=== PATIENT | female | born 1955 | race Caucasian/White ===

== ENCOUNTER → 2017-05-03 18:07 | Outpatient (CLI) | payer OTHER, SELFPAY ==
--- NOTE | 2017-05-03 18:38 | RAD_ITS ---
STUDY: X-RAY - RIGHT WRIST REASON FOR EXAM: Female, 61 years old. Right wrist pain x1 week TECHNIQUE: 3 view(s) of the wrist were obtained. COMPARISON: None. FINDINGS: Normal visualized distal radius and ulna. Normal radiocarpal articulation. Normal distal radioulnar articulation. Cystic area in the subchondral region of the lunate. Normal carpal articulations. Normal carpometacarpal articulation of the thumb. Normal second through fifth carpometacarpal articulations. Normal visualized metacarpal bones. The soft tissue structures are unremarkable. Probable old fracture of the ulnar styloid process. RAD/Wrist min 3 Views IMPRESSION: No acute findings. Some cystic change in the carpal bones. Electronically Signed: Jarek Naranjo DO at 8:54 EST Tel , Service support ,
[2017-05-03 19:05] LABS: Absolute Lymphocyte Count 2.75 X10^3/ul (0.83-4.51); Absolute Neutrophil Count 6.8 X10^3/uL (2.0-7.7); Basophil# 0.03 X10^3/uL; Basophil% 0.3 % (0-1); Eosinophil# 0.06 X10^3/uL; Eosinophils% 0.6 % (0-5); Hematocrit 41.2 % (37-47); Hemoglobin 13.2 g/dl (12.0-15.0); Lymphocyte # 2.75 X10^3/ul (4.0); Lymphocyte % 26.5 % (19-41); Mean Corpuscular Hgb 28.5 pg (27.0-32.0); Mean Platelet Vol. 10.1 fl (6.2-12.0); Monocyte# 0.75 X10^3/uL; Monocyte% 7.2 % (0-10); Neutrophil # 6.78 X10^3/uL (2.7-7.7); Neutrophil % 65.2 % (47-70); Platelet Count 242 K/mm3 (150-450); RBC Distribution Width CV 13.4 % (11.6-14.6); RBC Distribution Width SD 43.6 fl (35.1-43.9); Red Blood Count 4.63 M/mm3 (4.2-5.4); White Blood Count 10.4 K/mm3 (4.4-11.0)
[2017-05-03 19:06] LABS: POSITIVE COUNT NO; POSITIVE DIFFERENTIAL NO; POSITIVE MORPHOLOGY NO
[2017-05-03 19:24] LABS: Rheumatoid Factor < 10.0 IU/mL (<15); Uric Acid 4.9 mg/dL (2.6-6.0)
[2017-05-03 20:23] LABS: Erythrocyte Sedimentation Rate 40 mm/hr (0-30)
[2017-05-07 08:58] LABS: ANTINUCLEAR ANTIBODIES DIRECT Negative (Negative)
== END ==
PROVIDERS: Family Provider Internal Medicine; PCP Internal Medicine; Visit Provider Family Medicine
DX: M25.539 Pain in unspecified wrist (principal)
CPT/HCPCS: 36415; 73110; 84550; 85025; 85652; 86038; 86140; 86431

== ENCOUNTER 2018-02-27 00:32 | Emergency (ER) | payer OTHER, SELFPAY ==
[2018-02-27 00:36] VITALS: BP 116/61; PULSE 72; RESP 22; TEMP 35.6; O2SAT 99; BMI 26.1
--- NOTE | 2018-02-27 00:48 | CT_ITS ---
HISTORY: HEADACHE, N/V TECHNIQUE: Multiple axial images were obtained of the brain without intravenous contrast. A radiation dose optimization technique was used for this scan. IV Contrast dosage and agent: None. COMPARISON: None FINDINGS: Normal ventricles. Bauman-white matter differentiation appears normal. No intracranial mass, hemorrhage, or acute disease. Posterior fossa structures are unremarkable. No suspicious extra-axial fluid collection. As visualized, the mastoids and paranasal sinuses appear clear. CT/Brain/Head without Contrast IMPRESSION: Negative exam. No intracranial hemorrhage or suspicious findings. No acute disease. Individualized dose optimization techniques were used for this CT. at 0200 Reported and signed by: Jorge Franks MD Electronically Signed: Jorge Franks, at 1:58 EST Tel , Service support ,
--- NOTE | 2018-02-27 00:50 | ED.VISSUMM ---
- ER Visit Summary Date of Service: 02/27/18 Chief Complaint: [] Eye twitching with nausea vomiting History of Present Illness: The patient is a 62 F she states she woke this evening and her eyes felt twitchy she felt dizzy but not vertiginous. She felt lightheadedness. She had nausea with couple episodes of emesis. She has been having a frontal headache since she was struck in the head with a treadmill earlier today when she tried to move it. She was struck in the left side of her face and forehead where she has a headache. She has some hand paresthesias and feet paresthesias bilaterally intermittently. She feels better now but still has some of the nausea and dizziness. She is never had this before. She has had remote vertigo but this feels different. Physical Examination: [] Vital signs reviewed General: Well-nourished well-developed Head: Normocephalic atraumatic Eyes: Pupils equal round and reactive to light extraocular movements intact ENT: TMs clear no hemotympanum no trauma Neck: Nontender full range of motion Cardiovascular: Regular rate rhythm no murmurs normal S1-S2 Respiratory: No distress clear to auscultation bilaterally chest nontender Abdomen: Soft nontender nondistended normal bowel sounds no masses Back: Nontender no CVA tenderness Extremities: Nontender active range of motion ?4 extremities no trauma Skin: Normal color no trauma Neuro alert oriented cranial nerves II through XII intact normal strength sensation reflexes Test Results: [] Emergency Department Course and Treatment: [] Given IV fluids, Zofran, meclizine. Lab work and CT brain obtained and it is negative. She sinus rhythm on the monitor. CBC normal. Chemistries normal except potassium 3.0. Patient felt better after IV fluids and treatment. She was given a dose of potassium for her mildly low potassium of 3.0. At this time I think this is vertiginous type this symptoms. She does have M?ni?re's disease as she told me this later. She is on medication for this. I still feel that the trauma may have induced vertigo. She will follow-up as an outpatient. Given a prescription for nausea medicine and meclizine Treatment Plan: [] Disposition: [] Impression: [] Vertigo Blunt head injury Hypokalemia This note was generated with [employer] software. It may contain incorrect words, spelling, and punctuation that were not noted in review of the chart prior to signing ED Disposition - Plan for ED Patient: Chief Complaint: Nausea/Vomiting Referrals: Saida Gallegos MD [Primary Care Provider] -
[2018-02-27] MEDS: Meclizine HCl 25 MG Tablet PO (01:14)
[2018-02-27] MEDS: Ondansetron 4 MG/2 ML Vial IV (01:14)
[2018-02-27 01:34] LABS: Absolute Lymphocyte Count 2.63 X10^3/ul (0.83-4.51); Absolute Neutrophil Count 4.3 X10^3/uL (2.0-7.7); Basophil# 0.04 X10^3/uL; Basophil% 0.5 % (0-1); Eosinophils% 2.6 % (0-5); Hematocrit 39.5 % (37-47); Hemoglobin 13.2 g/dl (12.0-15.0); Lymphocyte # 2.63 X10^3/ul (4.0); Lymphocyte % 34.5 % (19-41); Mean Corp Hgb Conc 33.4 g/gl (32-36); Mean Corpuscular Hgb 28.8 pg (27.0-32.0); Mean Corpuscular Volume 86.1 fL (81-99); Monocyte# 0.48 X10^3/uL; Monocyte% 6.3 % (0-10); Neutrophil # 4.27 X10^3/uL (2.7-7.7); POSITIVE COUNT NO; POSITIVE DIFFERENTIAL NO; POSITIVE MORPHOLOGY NO; Platelet Count 220 K/mm3 (150-450); RBC Distribution Width CV 13.4 % (11.6-14.6); RBC Distribution Width SD 42.4 fl (35.1-43.9); Red Blood Count 4.59 M/mm3 (4.2-5.4); White Blood Count 7.6 K/mm3 (4.4-11.0)
[2018-02-27 01:39] LABS: Anion Gap 9 (5-15); BUN 20 mg/dL (7-18); BUN/Creat Ratio 19.8 RATIO (10-20); Calcium,Total 8.9 mg/dL (8.5-10.1); Chloride 104 mmol/L (98-107); Creatinine, Serum 1.01 mg/dL (0.55-1.02); EST Glomerular Filtration Rate 59 mL/min (>60); Est Glom Filt Rate - Afr Amer 72 mL/min (>60); Estimated Creatinine Clearance 46.85 ml/min; Glucose 146 mg/dL (74-106); Sodium Level 140 mmol/L (136-145)
--- NOTE | 2018-02-27 02:33 | ED.DEP ---
ED Disposition - Plan for ED Patient: Disposition: Home or Assisted Living Chief Complaint: Nausea/Vomiting Instructions: ED Head Injury Closed, What Is Meniere's Disease? Prescriptions: Ondansetron [Zofran Odt] 4 mg PO Q8H PRN PRN #10 tab PRN Reason: Nausea Meclizine HCl [Motion Sickness Relief] 25 mg PO TID PRN 3 Days #10 tab PRN Reason: Vertigo Referrals: Saida Gallegos MD [Primary Care Provider] -
[2018-02-27 02:49] VITALS: PULSE 79; RESP 17; O2SAT 99
== END 2018-02-27 03:10 | disposition home or self-care (01) ==
PROVIDERS: Emergency Provider Emergency Medicine; Family Provider Internal Medicine; PCP Internal Medicine
DX: R42 Dizziness and giddiness (principal); S09.90XA Unspecified injury of head, initial encounter; W22.8XXA Striking against or struck by other objects, initial encounter; Y93.9 Activity, unspecified; Y92.9 Unspecified place or not applicable; E87.6 Hypokalemia; I10 Essential (primary) hypertension; H81.09 Meniere's disease, unspecified ear; Z79.899 Other long term (current) drug therapy
CPT/HCPCS: 70450; 80048; 85025; 96361; 96374; 99285; J7030; J7040; A4216; J2405

== ENCOUNTER 2019-10-15 10:54 | Observation (INO) | payer OTHER, SELFPAY ==
[2019-10-15] VITALS (9 sets, daily range): BP systolic 98–135; BP diastolic 49–81; PULSE 60–78; RESP 16–20; TEMP 36.3–37.1; O2SAT 97–99; BMI 24.9; BMI 24.8
--- NOTE | 2019-10-15 11:11 | EKG12_ITS ---
Test Reason : SYNCOPE Blood Pressure : / mmHG Vent. Rate : 062 BPM Atrial Rate : 062 BPM P-R Int : 178 ms QRS Dur : 096 ms QT Int : 454 ms P-R-T Axes : 069 086 037 degrees QTc Int : 460 ms Normal sinus rhythm Normal ECG Confirmed by KEDAR BARRIOS, VALENTIN ([id number]), features editor MAGDALENE FUENTES ([id number]) on 10/17/2019 1:09:42 PM Referred By: RU Confirmed By:VALENTIN THACKER MD
--- NOTE | 2019-10-15 11:16 | NURSING ---
NO OLD EKGS
[2019-10-15 11:35] LABS: Absolute Lymphocyte Count 2.02 X10^3/uL (0.83-4.51); Absolute Neutrophil Count 5.8 X10^3/uL (2.0-7.7); Basophil# 0.08 X10^3/uL; Basophil% 0.9 % (0-1); Eosinophil# 0.16 X10^3/uL; Eosinophils% 1.8 % (0-5); Hematocrit 42.5 % (37-47); Hemoglobin 13.6 g/dL (12.0-15.0); Lymphocyte # 2.02 X10^3/ul (4.0); Lymphocyte % 23.1 % (19-41); Mean Corpuscular Hgb 28.7 pg (27.0-32.0); Mean Corpuscular Volume 89.7 fL (81-99); Mean Platelet Vol. 10.4 fl (6.2-12.0); Monocyte# 0.47 X10^3/uL; Monocyte% 5.4 % (0-10); NRBC Flagged by Analyzer 0 % (0-5); Neutrophil # 5.82 X10^3/uL (2.7-7.7); Neutrophil % 66.5 % (47-70); Platelet Count 228 K/mm3 (150-450); RBC Distribution Width CV 13.1 % (11.6-14.6); RBC Distribution Width SD 42.8 fl (35.1-43.9); Red Blood Count 4.74 M/mm3 (4.2-5.4); White Blood Count 8.8 K/mm3 (4.4-11.0)
[2019-10-15 12:03] LABS: Anion Gap 6 (5-15); BUN 17 mg/dL (7-18); BUN/Creat Ratio 17.3 RATIO (10-20); Calcium,Total 9.2 mg/dL (8.5-10.1); Chloride 105 mmol/L (98-107); Creatinine, Serum 0.98 mg/dL (0.55-1.02); EST Glomerular Filtration Rate 61 mL/min (>60); Est Glom Filt Rate - Afr Amer 74 mL/min (>60); Estimated Creatinine Clearance 47.08 ml/min; Glucose 148 mg/dL (74-106); Potassium 3.1 mmol/L (3.5-5.1); Sodium Level 139 mmol/L (136-145)
--- NOTE | 2019-10-15 12:19 | ED.VISSUMM ---
- ER Visit Summary Date of Service: 10/15/19 Chief Complaint: [Syncope ] History of Present Illness: The patient is a 64 F [presents to the emergency department complaint of a syncopal episode that happened while at work today. Patient states that she was sitting when she felt like maybe her ears got plugged and she began feeling lightheaded and then had a syncopal episode. Workers called EMS. Patient states that she felt like she was getting sick and felt very nauseated. She vomited several times. States that she has a history of many years and history of hypertension. She has had similar symptoms like this in the past. She denies any falls or head injuries otherwise. She denies recent illness.] Physical Examination: [HEENT-PERRLA, EOMI. Cranial nerves II through XII grossly intact. TMs clear. Mucous membranes moist. No adenopathy. No evidence of trauma to her head. No C-spine tenderness on palpation. Cardiovascular-regular rate and rhythm without murmur or ectopy Lungs-clear to auscultation, chest wall stable without crepitus or subcu emphysema Abdomen-normoactive bowel sounds, soft, nontender, no rebound or rigidity, no peritoneal signs. Neuro [id number] and heel sterling testing within normal limits, negative Romberg, negative , Fundi benign. Hallpike maneuver performed showed no evidence of nystagmus. Extremities-intact ?4, normal range of motion, normal pulses, atraumatic] Test Results: [EKG obtained arrival shows sinus rhythm with a ventricular rate of 62 bpm with no acute segment changes. CBC with it was normal. Chemistries unremarkable other than a slightly depressed potassium of 3.1. Troponin less than 0.015.] Emergency Department Course and Treatment: [ Was established. Patient was ordered Phenergan 12.5 mg IV. Patient ordered Valium and Antivert.] I did reevaluate patient and she had not received any of her medications at this point once her work-up was completed she is currently receiving her Phenergan as well as Valium and Antivert. Treatment Plan: [Admit] Disposition: [Admit] Impression: [Syncope Dizziness Vomiting] This note was generated with [employer] dictation software. It may contain incorrect words, spelling, and punctuation that were not noted in review of the chart prior to signing ED Disposition - Plan for ED Patient: Referrals: Saida Gallegos MD [Primary Care Provider] -
[2019-10-15] MEDS: proMETHazine 25 MG/ML Syringe 12.5 MG IV (12:21)
[2019-10-15] MEDS: 0.9% Normal Saline 1,000 ML 1000 ML IV (12:22)
--- NOTE | 2019-10-15 12:28 | PCM.HP.STD ---
Problem List (1) Syncope Status: Acute (2) M?ni?re's disease Status: Chronic (3) Hypertension Status: Chronic History of Present Illness Date of Admission: 10/15/19 Chief Complaint: Syncope The patient is a 64 year old F with history of M?ni?re's disease came to ER after she passed out at workplace. 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 For few days she was feeling her ears plugged in with mild dizziness but at work today she felt nausea, vomiting about 6 times, clear in nature, exacerbation of dizziness and vertigo and tinnitus like echoing of sound. After that she passed out, exact duration of syncope unclear. Her last exacerbation of M?ni?re's disease was about 3 years. She also has a history of migraine disease but last episode of migraine headache was about 10 years ago and currently not taking Maxalt. She also had localized breast cancer and lumpectomy and did not require any further treatment, has seen Dr. Monteiro She denies any fall, recent fever, shortness of breath or cough or other viral illness symptoms. In ED, vitals were within normal limit. Initial labs in the ER was significant for hypokalemia, K3.1, glucose 148. Troponin normal. EKG normal sinus rhythm, QTC 460 ms. [] Past Medical History Past Medical History (Chronic Problems): Chronic Problems M?ni?re's disease (Chronic) Hypertension (Chronic) Allergies codeine Adverse Reaction (Verified 10/15/19 10:58) Nausea/Vom/Diarrhea Home Medications: Ambulatory Orders Medication Instructions Recorded Atenolol [Tenormin] 25 mg PO DAILY 02/27/18 Ondansetron [Zofran Odt] 4 mg PO Q8H PRN PRN #10 tab 02/27/18 Triamterene/Hydrochlorothiazid 1 each PO DAILY 02/27/18 [Triamterene-Hctz 37.5-25 mg Cp] Smoking Status: Never smoker Alcohol: None Drugs: None - *Family History Maternal History Items: Cancer - Lung cancer Review of Systems Constitutional: Denies: Chills, Fever, Weight Change Eyes: Denies: Double vision HEENT: Reports: Difficulty Hearing. Denies: Head Aches, Sinus Congestion, Sinus Drainage Cardiovascular: Reports: Light Headedness. Denies: Chest Pain, Claudication, Chest Pressure, Chest Tightness, Edema, Palpitations Respiratory: Denies: Cough, Shortness of breath at rest, Sputum production Gastrointestinal: Denies: Abdominal Pain, Nausea, Vomiting Genitourinary: Denies: Dysuria Musculoskeletal: Denies: Joint Pain, Joint Tenderness Skin: Denies: Rash, Wounds Neurological: Denies: Numbness, Tingling, Focal weakness Psychiatric: Denies: Anxiety, Depression, Homicidal Ideations, Suicidal Ideations Hematologic/ Lymphatic: Denies: Easy Bruising, Easy Bleeding VTE Information - Inpt Only VTE Present on Admission: No VTE Mechan Device Prophylaxis: None VTE Pharm Prophylaxis ordered?: Yes Patient Problems: Active and Suspected Problems Syncope (Acute) - Physical Exam Vitals/I&O's: Vital Signs Temp Pulse Resp BP Pulse Ox 97.3 F L 66 20 H 128/57 H 99 10/15/19 10:55 10/15/19 10:55 10/15/19 10:55 10/15/19 10:55 10/15/19 10:55 Oxygen Delivery Method Room Air Weight: 136 lb 3.931 oz Body Mass Index (BMI) 24.9 General: Alert, Oriented x3, Cooperative HEENT: Atraumatic, PERRLA, EOMI, Normocephalic, - - On [place]-Hallpike maneuver, nystagmus was absent. Oral: No Gingival or Mucosal Lesions/ Ulcerations, Dry Mucosa Neck: Supple, No JVD, Negative Carotid Bruits Lungs: Clear to auscultation, Normal air movement, No rhonchi, No wheeze, No rales Cardiovascular: Regular rate, Regular Rhythm, Normal S1, Normal S2, No murmurs Abdomen: Bowel Sounds Present, Soft, Non Tender, Non-Distended Extremities: No edema, Capillary Refill Less than 3 Seconds Skin: No rashes, No breakdown Musculoskeletal: No Tenderness to Palpation of Joints or Extremities Neurological: Cranial nerves II-XII grossly intact Psych/Mental Status: Normal Affect, Appropriate Laboratory Results 10/15/19 11:30: WBC 8.8, RBC 4.74, Hgb 13.6, Hct 42.5, MCV 89.7, MCH 28.7, MCHC 32.0, RDW Std Deviation 42.8, RDW Coeff of Zechariah 13.1, Plt Count 228, MPV 10.4, Immature Gran % (Auto) 2.300 H, Neut % (Auto) 66.5, Lymph % (Auto) 23.1, [place] % (Auto) 5.4, Eos % (Auto) 1.8, Baso % (Auto) 0.9, Absolute Neuts (auto) 5.8, Absolute Lymphs (auto) 2.02, Nucleated RBC % 0 10/15/19 11:30: Sodium 139, Potassium 3.1 L, Chloride 105, Carbon Dioxide 28.0, Anion Gap 6, BUN 17, Creatinine 0.98, Estim Creat Clear Calc 47.08, Est GFR (MDRD) Af Amer 74, Est GFR (MDRD) Non-Af 61, BUN/Creatinine Ratio 17.3, Glucose 148 H, Calcium 9.2, Troponin I < 0.015 Assessment/Plan All Active Problems Syncope (Acute) The patient is a 64 year old F with history of M?ni?re's disease came to ER after she passed out at workplace with nausea, vomiting, dizziness and vertigo, clinically suggestive of M?ni?re's disease episode. In ED, vitals were within normal limit. Initial labs in the ER was significant for hypokalemia, K3.1, glucose 148. Troponin normal. EKG normal sinus rhythm, QTC 460 ms. [] 1. Syncope most probably secondary to M?ni?re's disease exacerbation: She has nausea, vomiting, tinnitus, dizziness and vertigo consistent with M?ni?re's disease episode. Patient was given Phenergan, diazepam, and Antivert in ER. Continue IV fluid Ringer lactate. Orthostatic blood pressure later on when dizziness is better. IV Lasix later when blood pressure is improved. Supportive medications including Phenergan, Zofran, Antivert and diazepam. 2. Mild hypokalemia: Potassium and creatinine placed. Serum magnesium and phosphorus ordered. 3. Hypertension: Blood pressure is controlled. On HCTZ/triamterene and atenolol. 4. M?ni?re's disease: As mentioned above DVT prophylaxis: On Lovenox 40 mg subcu daily Living will/advanced directive/end of life care: Patient does not have living will or advanced directive. After discussion of procedures involved with full code, DNR CC arrest and DNR CC, the patient opted for full code. Patient does want artificial life support including intubation, tube feed, ventilator and/chest compression, central venous catheter, vasopressor and DC shock if needed Total time spent in [id number] encounter in discussion of advanced directive 16 minutes OBSV E&M: 29237 Initial observation care L3 Procedures: 87096 Advncd Care Plan 30 Min
[2019-10-15] MEDS: diazePAM 2 MG Tablet 4 MG PO (12:29)
[2019-10-15] MEDS: Meclizine HCl 25 MG Tablet PO (12:29)
--- NOTE | 2019-10-15 12:35 | NURSING ---
PCU SYNCOPE, DIZZINESS, VOMITING JACKY
[2019-10-15 13:24] LABS: Magnesium 2.1 mg/dL (1.6-2.6)
[2019-10-15] MEDS: Enoxaparin 40 MG/0.4 ML Syringe SC (14:05)
[2019-10-15] MEDS: 0.9% Saline Lock 10 ML Syringe IV ×2 (14:07→16:02)
[2019-10-15] MEDS: Furosemide 40 MG/4 ML Vial IV (16:02)
[2019-10-16 03:00] VITALS: PULSE 62
[2019-10-16 03:30] VITALS: BP 126/58; PULSE 62; RESP 18; TEMP 36.8; O2SAT 97
[2019-10-16 05:48] LABS: Anion Gap 8 (5-15); BUN 17 mg/dL (7-18); BUN/Creat Ratio 18.8 RATIO (10-20); Calcium,Total 8.1 mg/dL (8.5-10.1); Chloride 104 mmol/L (98-107); EST Glomerular Filtration Rate 67 mL/min (>60); Est Glom Filt Rate - Afr Amer 81 mL/min (>60); Estimated Creatinine Clearance 51.26 ml/min; Glucose 86 mg/dL (74-106); Phosphorus 3.1 mg/dL (2.5-4.9); Potassium 3.2 mmol/L (3.5-5.1); Sodium Level 137 mmol/L (136-145); Thyroid Stim Hormone (TSH) 0.95 uIU/mL (0.358-3.74)
[2019-10-16 06:14] VITALS: BP 108/59; BP 109/64; BP 111/53; PULSE 60; PULSE 64; PULSE 67
[2019-10-16 06:48] VITALS: PULSE 68
[2019-10-16 07:01] VITALS: O2SAT 95
[2019-10-16] MEDS: Triamterene 37.5MG/Hctz 25MG Capsule 1 CAP PO (08:24)
[2019-10-16 09:30] VITALS: BP 119/59; PULSE 76; RESP 18; TEMP 36.8; O2SAT 99
--- NOTE | 2019-10-16 10:06 | PCM.DC ---
- Discharge Diagnoses Current Active Problems: Current Active and Chronic Problems Syncope (Acute) M?ni?re's disease (Chronic) Hypertension (Chronic) You will use the following diet at home:: Cardiac - Low SALT, 2 gm Sodium diet Your food should be the consistency of: Regular Discharge Activity: May Not Drive Weight Bearing Status: Weight bearing as tolerated Call your doctor if you observe: Fever of 101 or Higher, Numbness or Tingling, Inability to urinate, Inability to have a bowel movement, Using more than one pad per hour, Shortness of breath, Dizziness, Fainting spells, Swelling in the ankles, Chest pain, Prolonged hiccoughing, Increased palpitations (irregular heartbeat), Calf discomfort, Uncontrolled pain Allergies/Adverse Reactions: Allergies codeine Adverse Reaction (Verified 10/15/19 10:58) Nausea/Vom/Diarrhea Medications to take at Discharge Atenolol [Tenormin] 25 mg PO DAILY 02/27/18 Ondansetron [Zofran Odt] 4 mg PO Q8H PRN PRN #10 tab 02/27/18 Triamterene/Hydrochlorothiazid [Triamterene-Hctz 37.5-25 mg Cp] 1 each PO DAILY 02/27/18 Meclizine HCl [Antivert] 25 mg PO 4X/DAY PRN PRN #30 tab 10/16/19 The following prescriptions were given: Meclizine HCl [Antivert] 25 mg PO 4X/DAY PRN PRN #30 tab PRN Reason: dizziness/vertigo Transmission Status: Pending to [facility]/pharmacy #[id number] Primary Care Physician: Saida Gallegos MD [Primary Care Provider] - Please follow up with your Primary Care Physician in: in 2 weeks Test Results: Test results from this visit will be discussed in further detail at your follow-up appointment, if applicable. Please Follow Up With: Guerrero Ortega MD When: on 10/19/2019
--- NOTE | 2019-10-16 10:07 | PCM.DC.SUM ---
Discharge Date and Diagnosis Date of Admission: 10/15/19 Date of Discharge: 10/16/19 - Primary Discharge Diagnosis Acute Problems: Active Problems Syncope (Acute) probably secondary to severe vertigo/M?ni?re's disease episode - Secondary Discharge Diagnosis Chronic Problems: Chronic Problems M?ni?re's disease (Chronic) Hypertension (Chronic) Hospital Course and Treatment Summary of Care Provided: [] The patient is a 64 year old F with history of M?ni?re's disease came to ER after she passed out at workplace with nausea, vomiting, dizziness and vertigo, clinically suggestive of M?ni?re's disease episode. In ED, vitals were within normal limit. Initial labs in the ER was significant for hypokalemia, K3.1, glucose 148. Troponin normal. EKG normal sinus rhythm, QTC 460 ms. [] 1. Syncope most probably secondary to M?ni?re's disease episode/exacerbation: She has nausea, vomiting, tinnitus, dizziness and vertigo consistent with M?ni?re's disease episode. Patient was given Phenergan, diazepam, and Antivert in ER. Patient had IV fluid Ringer lactate, later on discontinued. Lasix 40 mg IV was given. Orthostatic blood pressure was negative for significant change in heart rate or blood pressure. Patient had Lasix 20 mg IV today. Advised to continue triamterene/HCTZ 37.5/5 mg daily. Prescription for Antivert was given. Patient has follow-up with ENT Dr. Abdi Ortega on 10/19/2019. 2. Mild hypokalemia: Potassium and creatinine placed. Potassium of replaced. Serum phosphorus and magnesium was normal. 3. Hypertension: Blood pressure is controlled. On HCTZ/triamterene and atenolol. 4. M?ni?re's disease: As mentioned above DVT prophylaxis: On Lovenox 40 mg subcu daily Patient opted for full code. Discharge medication reconciliation done. Discharge follow-up instructions completed. Discharge process discussed with the patient and all questions were answered to patient's satisfaction. Objective: Seen and examined. Patient feels much better. Vertigo is resolved. The patient still has mild ear fullness. Physical exam General: Alert, Oriented x3, Cooperative, no dizziness HEENT: Atraumatic, PERRLA, EOMI, Normocephalic, nystagmus absent. Oral: No Gingival or Mucosal Lesions/ Ulcerations, Dry Mucosa Neck: Supple, No JVD, Negative Carotid Bruits Lungs: Clear to auscultation, Normal air movement, No rhonchi, No wheeze, No rales Cardiovascular: Regular rate, Regular Rhythm, Normal S1, Normal S2, No murmurs Abdomen: Bowel Sounds Present, Soft, Non Tender, Non-Distended Extremities: No edema, Capillary Refill Less than 3 Seconds Skin: No rashes, No breakdown Musculoskeletal: No Tenderness to Palpation of Joints or Extremities Neurological: Cranial nerves II-XII grossly intact Psych/Mental Status: Normal Affect, Appropriate - Physical Exam Vitals/I&O's: Vital Signs Temp Pulse Resp BP Pulse Ox 98.3 F 68 18 111/53 L 95 10/16/19 03:30 10/16/19 06:48 10/16/19 03:30 10/16/19 06:14 10/16/19 07:01 Oxygen Delivery Method Room Air Weight: 136 lb Body Mass Index (BMI) 24.8 Orthostatic Vital Signs Start: 10/15/19 16:14 Freq: 0600 Status: Active Protocol: Activity Type Activity Date Activity User E-Sign Co-Sign Detail Recorded Client Recorded Date Recorded By Document 10/16/19 06:14 [facility] [id number] 10/16/19 06:21 [facility] 10/16/19 06:14 Orthostatic Vitals Standing -Blood Pressure (90/60-120/80 mm Hg) 109/64 -Extremity Use Right Arm -Pulse Rate (60-100 beats/min) 67 Sitting -Blood Pressure (90/60-120/80 mm Hg) 108/59 L -Extremity Use Right Arm -Pulse Rate (60-100 beats/min) 64 Lying -Blood Pressure (90/60-120/80 mm Hg) 111/53 L -Extremity Use Right Arm -Pulse Rate (60-100 beats/min) 60 Intake and Output for Last 24 Hours 10/14/19 10/15/19 10/16/19 23:59 23:59 23:59 Intake Total 1760 / 1760 Output Total 1000 / 1000 Balance 1760 / 1760 -1000 / -1000 Laboratory Results 10/15/19 11:30: WBC 8.8, RBC 4.74, Hgb 13.6, Hct 42.5, MCV 89.7, MCH 28.7, MCHC 32.0, RDW Std Deviation 42.8, RDW Coeff of Zechariah 13.1, Plt Count 228, MPV 10.4, Immature Gran % (Auto) 2.300 H, Neut % (Auto) 66.5, Lymph % (Auto) 23.1, [place] % (Auto) 5.4, Eos % (Auto) 1.8, Baso % (Auto) 0.9, Absolute Neuts (auto) 5.8, Absolute Lymphs (auto) 2.02, Nucleated RBC % 0 10/15/19 11:30: Sodium 139, Potassium 3.1 L, Chloride 105, Carbon Dioxide 28.0, Anion Gap 6, BUN 17, Creatinine 0.98, Estim Creat Clear Calc 47.08, Est GFR (MDRD) Af Amer 74, Est GFR (MDRD) Non-Af 61, BUN/Creatinine Ratio 17.3, Glucose 148 H, Calcium 9.2, Troponin I < 0.015 10/15/19 11:30: Magnesium 2.1 10/16/19 04:58: Sodium 137, Potassium 3.2 L, Chloride 104, Carbon Dioxide 25.0, Anion Gap 8, BUN 17, Creatinine 0.90, Estim Creat Clear Calc 51.26, Est GFR (MDRD) Af Amer 81, Est GFR (MDRD) Non-Af 67, BUN/Creatinine Ratio 18.8, Glucose 86, Calcium 8.1 L, Phosphorus 3.1, TSH 0.95 Current Medications Acetaminophen (Tylenol) 650 mg PO Q6H PRN PRN PRN Reason: Pain Score 1-10/Temp > 100.7 F Atenolol (Tenormin (Beta Rex)) 25 mg PO QHS [facility] Dextrose (D50w Syringe) 0 gm IV X1 PRN; Protocol PRN Reason: Hypoglycemia Diazepam (Valium) 5 mg PO 4X/DAY PRN PRN PRN Reason: vetigo/dizziness Enoxaparin Sodium (Lovenox) 40 mg SC DAILY [facility] Last Admin: 10/16/19 08:28 Dose: Not Given Documented by: Furosemide (Lasix) 20 mg IV X1 ONE Stop: 10/16/19 10:31 Glucagon () 1 mg IM .X1 PRN PRN Reason: Hypoglycemia Meclizine HCl (Antivert) 25 mg PO 4X/DAY PRN PRN PRN Reason: dizziness/vertigo Morphine Sulfate () 2 mg IV Q3H PRN PRN PRN Reason: Pain Score 6-10/10 Ondansetron HCl (Zofran) 4 mg IV Q6H PRN PRN PRN Reason: NAUSEA/VOMITING Oxycodone HCl (Oxyir) 5 mg PO Q4H PRN PRN PRN Reason: Pain Score 4-5/10 Potassium Chloride (K-Dur) 40 meq PO X1 ONE Stop: 10/16/19 10:31 Promethazine HCl (Phenergan) 12.5 mg IV Q6H PRN PRN PRN Reason: Breakthrough Nausea/Vomiting Senna/Docusate Sodium (Senokot-S, Liza-Colace) 2 tablet PO BID PRN PRN PRN Reason: Constipation Sodium Chloride () 10 - 40 ml IV UD PRN PRN Reason: SALINE FLUSH Last Admin: 10/15/19 16:02 Dose: 10 ml Documented by: Triamterene/HCTZ (Dyazide (G)) 1 cap PO DAILY RADHA Last Admin: 10/16/19 08:24 Dose: 1 cap Documented by: Discharge Activity: May Not Drive Weight Bearing Status: Weight bearing as tolerated Call your doctor if you observe: Fever of 101 or Higher, Numbness or Tingling, Inability to urinate, Inability to have a bowel movement, Using more than one pad per hour, Shortness of breath, Dizziness, Fainting spells, Swelling in the ankles, Chest pain, Prolonged hiccoughing, Increased palpitations (irregular heartbeat), Calf discomfort, Uncontrolled pain Home Medications: Medications to take at Discharge Atenolol [Tenormin] 25 mg PO DAILY 02/27/18 Triamterene/Hydrochlorothiazid [Triamterene-Hctz 37.5-25 mg Cp] 1 each PO DAILY 02/27/18 Meclizine HCl [Antivert] 25 mg PO 4X/DAY PRN PRN #30 tab 10/16/19 Following Prescrptions Were Given to Patient: Meclizine HCl [Antivert] 25 mg PO 4X/DAY PRN PRN #30 tab PRN Reason: dizziness/vertigo Transmission Status: Received by [facility]/pharmacy #[id number] Primary Care Physician: Saida Gallegos MD [Primary Care Provider] - Please follow up with your Primary Care Physician in: in 2 weeks Please Follow Up With: Guerrero Ortega MD When: on 10/19/2019 Medical Necessity - Tobacco Use Smoking Status: Never smoker Tobacco Use: Non-smoker Meaningful Use Info Meaningful Use Diagnoses (Choose all that apply): None applicable OBSV E&M: 81152 Observation care discharge
[2019-10-16] MEDS: Furosemide 20 MG/2 ML VIAL IV (10:31)
[2019-10-16] MEDS: 0.9% Saline Lock 10 ML Syringe IV (10:31)
--- NOTE | 2019-10-16 15:25 | PHA.DC.MC ---
Pharmacy Service has performed discharge medication reconciliation and counseling for this patient. 1. MECLIZINE 25MG PO 4X/DAY PRN DIZZINESS/VERTIGO The patient's discharge medication list was reviewed for discrepancies and discrepancies were resolved. Home med list included ondansetron but patient is no longer taking this. Asked patient's nurse to remove from med list. Home Medications Atenolol [Tenormin] 25 mg PO DAILY 02/27/18 Triamterene/Hydrochlorothiazid [Triamterene-Hctz 37.5-25 mg Cp] 1 each PO DAILY 02/27/18 Meclizine HCl [Antivert] 25 mg PO 4X/DAY PRN PRN #30 tab 10/16/19 The patient was counseled on the following discharge medications and changes in medications for homegoing were reviewed. The Reason for Use, instructions for use, and potential side effects were reviewed for all new medications. The patient's questions regarding all of their medications were answered. The patient was able to verbally demonstrate an understanding of their discharge medications.
== END 2019-10-16 10:07 | disposition home or self-care (01) ==
LOC: ED 11:56 → PCU 12:42
PROVIDERS: Admitting Provider Internal Medicine; Emergency Provider Emergency Medicine; PCP Internal Medicine; Visit Provider Internal Medicine
DX: R55 Syncope and collapse (principal); I10 Essential (primary) hypertension; Z79.899 Other long term (current) drug therapy; E87.6 Hypokalemia
CPT/HCPCS: 36415; 80048; 83735; 84100; 84443; 84484; 85025; 93005; 96361; 96372; 96374; 96375; 96376; 99218; 99285; J7030; J7040; A4216; G0378; J1940

== ENCOUNTER → 2019-11-07 08:57 | Outpatient (CLI) | payer OTHER, SELFPAY ==
[2019-10-29 15:25] VITALS: BMI 24.8
--- NOTE | 2019-11-07 09:01 | CDU_ITS ---
Reason For Study: SYNCOPE Rt. Velocities/BP Lt. Velocities/BP Prox CCA 93.0/23.9 cm/sec. Prox CCA 113.4/24.9 cm/sec. Mid CCA 94.3/22.6 cm/sec. Mid CCA 115.8/26.2 cm/sec. Dist CCA 82.6/25.2 cm/sec. Dist CCA 80.2/24.9 cm/sec. Prox ICA 90.4/25.2 cm/sec. Prox ICA 69.1/22.5 cm/sec. Mid ICA 98.2/27.8 cm/sec. Mid ICA 67.9/21.2 cm/sec. Dist ICA 86.5/26.5 cm/sec. Dist ICA 88.8/33.5 cm/sec. Rt. ICA/CCA = 1.06. Lt. ICA/CCA = 0.78. Prox ECA 83.9/13.4 cm/sec. Prox ECA 64.2/12.6 cm/sec. Rt. Vert. 40.8/10.2 cm/sec. Lt. Vert. 58.1/17.6 cm/sec. Right Extracranial There is intimal thickening but no significant atherosclerotic plaque noted in the right common carotid artery. There is homogeneous, smooth atherosclerotic plaque noted in the right internal carotid artery. There is intimal thickening but no significant atherosclerotic plaque noted in the right external carotid artery. Antegrade flow is noted in the right vertebral artery. Left Extracranial There is homogeneous, smooth atherosclerotic plaque noted in the left common carotid artery. There is intimal thickening but no significant atherosclerotic plaque noted in the left internal carotid artery. There is intimal thickening but no significant atherosclerotic plaque noted in the left external carotid artery. Antegrade flow is noted in the left vertebral artery. Procedure Carotid Duplex 15716. Exam performed in department. Interpretation Summary Minimal smooth plaque at the proximal right internal carotid and minimal intimal thickening of the left internal carotid with less than 50% stenosis bilateral internal carotids <50% stenosis bilateral external carotids Patent, antegrade vertebrals bilaterally Ordering Physician: Jennifer Fallon Performed By: Yung HOLILS RVT, Carrie and Student
--- NOTE | 2019-11-07 09:01 | ECHOD_ITS ---
Version 2 Reason For Study: Syncope Procedure This was a 2D Doppler, Color Flow transthoracic echocardiogram. Exam performed in department. Left Ventricle Normal LV size. The estimated ejection fraction is 60 %. Normal diastology for age. No regional wall motion abnormalities noted. Right Ventricle Normal RV size. Normal systolic function. Atria Normal left atrium. Normal right atrium. No doppler evidence for ASD. Bubble contrast study negative for right to left interatrial shunt. Mitral Valve There is no mitral valve stenosis. Trivial mitral valve insufficiency. Tricuspid Valve There is no tricuspid stenosis. Unable to estimate RV systolic pressure due to insufficient tricuspid regurgitant envelope. Trivial tricuspid valve insufficiency. Aortic Valve Trisinus/trileaflet aortic valve. There is no aortic stenosis. No aortic valve insufficiency. Pulmonic Valve There is no pulmonic valvular stenosis. No pulmonic valve insufficiency. Great Vessels Normal aortic root. Pericardium/Pleural No pericardial effusion. Medication Performed a rapid injection of agitated mix of 9 cc saline and 1cc air to assess for atrial septal defect. MMode/2D Measurements & Calculations LVIDd: 4.1 cm IVSd: 0.85 cm Ao root diam: 2.4 cm LVIDs: 2.8 cm LVPWd: 0.78 cm RVDd: 2.3 cm FS: 32.7 % LAV(MOD-bp): 29.2 ml LVAd ap4: 22.2 cm2 SV(MOD-sp4): 37.4 ml LAV(MOD-bp) Indexed: 18.0 ml/m2 EDV(MOD-sp4): 58.4 ml LAV(MOD-sp2): 21.9 ml EDV(sp4-el): 57.8 ml LAV(MOD-sp4): 36.6 ml LVAs ap4: 12.0 cm2 ESV(MOD-sp4): 21.0 ml ESV(sp4-el): 20.1 ml EF(MOD-sp4): 64.1 % EF(sp4-el): 65.2 % SV(sp4-el): 37.7 ml LA A4 area: 14.0 cm2 LA dimension(2D): 2.7 cm RA A4 area: 8.7 cm2 Doppler Measurements & Calculations MV E max da: 67.3 cm/sec Lat Peak E' Da: 8.5 cm/sec Med Peak E' Da: 9.3 cm/sec MV A max da: 72.1 cm/sec E/E' lat: 8.0 E/E' med: 7.2 MV E/A: 0.93 Ao V2 max: 123.4 cm/sec LV V1 max: 95.8 cm/sec PA V2 max: 78.5 cm/sec Ao max P.1 mmHg LV V1 max P.7 mmHg Ao V2 mean: 93.2 cm/sec Ao mean P.7 mmHg Ao V2 VTI: 32.7 cm Interpretation Summary The estimated ejection fraction is 60 %. Normal diastology for age. Trivial mitral valve insufficiency. Ordering Physician: Jennifer Fallon Referring Physician: Jennifer Fallon Performed By: Demi Rachel, TELMA, RVT
== END ==
PROVIDERS: Referring Provider Specialist; Visit Provider Specialist
DX: R55 Syncope and collapse (principal); I10 Essential (primary) hypertension
CPT/HCPCS: 93306; 93880; A4216

== ENCOUNTER → 2020-01-28 16:41 | Outpatient (CLI) | payer OTHER, SELFPAY ==
[2019-12-26 13:27] VITALS: BMI 24.8
--- NOTE | 2020-01-28 16:46 | MRI_ITS ---
STUDY: MRI BRAIN WITH AND WITHOUT CONTRAST (ATTENTION INTERNAL AUDITORY CANALS - I.A.C.''s) REASON FOR EXAM: Female, 64 years old. dizziness off and on since october TECHNIQUE: Standardized multiplanar fat and water weighted pulse sequences were obtained. dotarem 12 ml iv was administered for the contrast portion of the examination. COMPARISON: 09/28/2006 FINDINGS: Normal bilateral temporal bones. Normal bilateral internal auditory canals. There is no demonstrated intracanalicular or cisternal vestibular schwannoma (acoustic neuroma). There is no enhancement of the bilateral VIIth or VIIIth cranial nerves. Normal bilateral cochlea, vestibules and semicircular canals. Normal size of the ventricles and extra-axial spaces for the patient''s age. There are a limited number of small white matter hyperintensities, distributed throughout the deep white matter tracts of the cerebral hemispheres, consistent with mild chronic white matter ischemic changes. Normal bilateral basal ganglia. Normal thalami. Normal flow voids within the major intracranial circulation suggesting patency by spin echo criteria. Normal venous enhancement. There is no enhancing intra-axial or extra-axial abnormality. There is no extra-axial fluid accumulation. Normal sella turcica, pituitary gland, infundibular stalk, optic chiasm and hypothalamus. Normal tectal plate and pineal gland. Normal midbrain, ramonita and medulla. Normal cerebellum. Normal basal cisterns. No demonstrated orbital abnormality, within the constraints of a routine brain study. Right frontal sinus disease. Normal calvarium and skull base. Normal visualized soft tissue structures. Normal visualized upper cervical spine. MRI/Brain W/WO Contrast IMPRESSION: Normal unenhanced and enhanced MRI of the bilateral internal auditory canals (I.A.C''s). No evidence of infarct, hemorrhage, mass, or abnormal enhancement. Electronically Signed: Phi Harper MD at 20:33 EDT Tel , Service support ,
[2020-01-28 17:30] LABS: CREATININE FINGERSTICK 0.7 mg/dL (0.55-1.02); EGFR FINGERSTICK > 60.0000 mL/min (>60)
== END ==
PROVIDERS: PCP Family Medicine; Referring Provider Otolaryngology Otolaryngology/Facial Plastic Surgery; Visit Provider Otolaryngology Otolaryngology/Facial Plastic Surgery
DX: R42 Dizziness and giddiness (principal)
CPT/HCPCS: 70553; A9575

== ENCOUNTER → 2020-03-31 07:59 | Outpatient (CLI) | payer OTHER, SELFPAY ==
[2020-03-18 08:14] VITALS: BMI 26.4
[2020-03-31 08:41] LABS: Anion Gap 6 (5-15); BUN 17 mg/dL (7-18); BUN/Creat Ratio 17.3 RATIO (10-20); Chloride 104 mmol/L (98-107); Cholesterol 211 mg/dL (200); Creatinine, Serum 0.98 mg/dL (0.55-1.02); EST Glomerular Filtration Rate 61 mL/min (>60); Est Glom Filt Rate - Afr Amer 74 mL/min (>60); Glucose 99 mg/dL (74-106); High Density Lipoprotein 59 mg/dL; Potassium 3.7 mmol/L (3.5-5.1); Sodium Level 140 mmol/L (136-145); Triglycerides 155 mg/dL; Very Low Density Lipoprotein 31 mg/dL (5-40)
== END ==
PROVIDERS: PCP Family Medicine; Referring Provider Nurse Practitioner Family; Visit Provider Nurse Practitioner Family
DX: I10 Essential (primary) hypertension (principal); E87.6 Hypokalemia
CPT/HCPCS: 36415; 80048; 80061

== ENCOUNTER → 2020-04-21 06:24 | Outpatient (CLI) | payer OTHER, SELFPAY ==
[2020-03-18 08:14] VITALS: BMI 26.4
--- NOTE | 2020-04-28 10:40 | TELEMED_ITS ---
[facility] has confirmed receipt of a request for visit. This document confirms receipt of the order initiating the consult. To find the results of the consultation, please view the patient's reports for the scanned Telemed Consult.
== END ==
PROVIDERS: PCP Family Medicine; Referring Provider Psychiatry & Neurology Neurology; Visit Provider Psychiatry & Neurology Neurology
DX: R55 Syncope and collapse (principal)
CPT/HCPCS: 95819

== ENCOUNTER 2021-07-14 14:22 | Outpatient (CLI) | payer OTHER, SELFPAY ==
[2021-07-17 00:10] LABS: Free Kappa Light Chains 15.6 mg/L (3.3-19.4); Free Lambda Light Chains 21.5 mg/L (5.7-26.3)
== END 2021-07-14 23:59 | disposition home or self-care (01) ==
LOC: LAB 14:24
PROVIDERS: PCP Family Medicine; Visit Provider Psychiatry & Neurology Neurology
DX: G62.9 Polyneuropathy, unspecified (principal)
CPT/HCPCS: 36415; 83883

== ENCOUNTER → 2024-09-17 | Outpatient (CLI) | payer OTHER, SELFPAY ==
[2024-09-20 22:07] LABS: Vitamin B1, Thiamine 66.6 nmol/L (66.5-200.0)
== END | disposition home or self-care (01) ==
LOC: LAB 08:05
PROVIDERS: PCP Internal Medicine; Referring Provider Psychiatry & Neurology Neurology; Visit Provider Psychiatry & Neurology Neurology
DX: G31.84 Mild cognitive impairment of uncertain or unknown etiology (principal)
CPT/HCPCS: 36415; 84425